=== PATIENT | female | born 1940 | race Asian ===

== ENCOUNTER → 2024-02-23 | Outpatient (CLI) | payer OTHER, SELFPAY ==
[2024-02-23 16:35] LABS: Basophils # (Auto) 0.1 Thou/mm3 (0.0-0.2); Basophils % (Auto) 1 % (0-2.5); Eosinophils % (Auto) 1 % (0-10); Hematocrit 38.1 % (36.0-46.0); Hemoglobin 12.6 g/dL (12.0-16.0); Immature Granulocytes % (Auto) 1 % (0-0); Immature Granulocytes Auto 0.04 Thou/mm3 (0.00-0.00); Lymphocytes # (Auto) 1.5 Thou/mm3 (1.0-4.8); Lymphocytes % (Auto) 21 % (10-50); Mean Corpuscular HGB Conc 33.1 g/dl (31.0-37.0); Mean Corpuscular Hemoglobin 30.3 pg (25.0-35.0); Mean Corpuscular Volume 92 fL (80-100); Monocytes # (Auto) 0.6 Thou/mm3 (0.0-0.8); Monocytes % (Auto) 8 % (0-12); Neutrophils % (Auto) 69 % (37-80); Nucleated Red Blood Cell % 0 /100 WBC (0); Platelet Count 270 Thou/mm3 (140-440); RDW Standard Deviation 47.3 fL (36.4-46.3); Red Blood Count 4.16 Miln/mm3 (4.00-5.20); White Blood Count 7.3 Thou/mm3 (3.6-11.0)
[2024-02-23 16:53] LABS: Alanine Aminotransferase 31 U/L (10-49); Albumin/Globulin Ratio 1.5 (1.2-2.2); Alkaline Phosphatase 94 U/L (46-116); Anion Gap 7 (7-16); Aspartate Amino Transferase 35 U/L (0-34); BUN/Creatinine Ratio 21 Ratio (12-20); Bilirubin,Total 0.5 mg/dL (0.3-1.2); Blood Urea Nitrogen 17 mg/dL (9-23); Calcium 9.2 mg/dL (8.3-10.6); Calcium (Corrected) 9.2 mg/dL (8.5-10.1); Carbon Dioxide 27.6 mMol/L (20.0-31.0); Chloride 101 mMol/L (98-107); Creatinine (Component) 0.8 mg/dL (0.6-1.3); Globulin 2.6 gm/dL (2.3-3.5); Glucose 87 mg/dL (74-106); Osmolality,Calculated 272 (275-295); Potassium 4.4 mMol/L (3.4-5.1); Sodium 136 mMol/L (136-145); Thyroid Stimulating Hormone 2.25 uIU/mL (0.55-4.78); Total Protein 6.6 gm/dL (5.7-8.2); eGFR > 60 See Note
== END | disposition home or self-care (01) ==
LOC: COPL 14:59
PROVIDERS: PCP Family Medicine; Referring Provider Family Medicine; Visit Provider Family Medicine
DX: R42 Dizziness and giddiness (principal)
CPT/HCPCS: 36415; 80053; 84443; 85025

== ENCOUNTER 2024-10-05 10:38 | Emergency (ER) | payer OTHER, SELFPAY ==
[2024-10-05 10:49] VITALS: BP 136/77; PULSE 68; RESP 16; TEMP 36.7; O2SAT 98; BMI 24.0
--- NOTE | 2024-10-05 11:12 | XR_ITS ---
Examination: AP chest single view Technique one AP portable upright chest single view Date and time: October 05, 2024, 11:42 AM Indications: Shivering today Findings: Normal heart size. No pneumonia or pulmonary edema. Prominent osteopenia Impression: No pneumonia or pulmonary edema
--- NOTE | 2024-10-05 11:13 | PD.EDRME ---
Rapid Medical Screening Exam RME Arrival date/time: 10/05/24 10:38 This is an 84-year-old female that is brought in by daughter with complaints of chills that started yesterday. Daughter states she has not noticed a fever but does notice that her mom had chills today and yesterday. Per daughter patient is eating and drinking with no issues. Patient does have a history of dementia and gets owners. Patient's daughter. Otherwise patient's neurological status has not changed per daughter. I have greeted and performed a focused initial assessment of this patient. Initial appropriate labs ordered at this time. A comprehensive ED assessment and evaluation of the patient and analysis of all test and completion of medical decision making process will be conducted by additional ED provider. Chief Complaint: General Adult/Misc Complain Time Seen by Provider: 10/05/24 10:53 Vital signs: Vital Signs Temperature 98.1 F 10/05/24 10:49 Pulse Rate 68 10/05/24 10:49 Respiratory Rate 16 10/05/24 10:49 Blood Pressure 136/77 H 10/05/24 10:49 Pulse Oximetry (%) 98 10/05/24 10:49 Oxygen Delivery Method Room Air 10/05/24 10:49
[2024-10-05 12:24] LABS: Collection Type, Urine Voided
[2024-10-05 12:27] LABS: Basophils # (Auto) 0.1 Thou/mm3 (0.0-0.2); Basophils % (Auto) 1 % (0-2.5); Eosinophils # (Auto) 0.1 Thou/mm3 (0.0-0.5); Eosinophils % (Auto) 1 % (0-10); Hematocrit 37.8 % (36.0-46.0); Hemoglobin 12.8 g/dL (12.0-16.0); Immature Granulocytes Auto 0.04 Thou/mm3 (0.00-0.00); Lymphocytes # (Auto) 1.2 Thou/mm3 (1.0-4.8); Lymphocytes % (Auto) 21 % (10-50); Mean Corpuscular HGB Conc 33.9 g/dl (31.0-37.0); Mean Corpuscular Hemoglobin 30.5 pg (25.0-35.0); Mean Corpuscular Volume 90 fL (80-100); Monocytes # (Auto) 0.6 Thou/mm3 (0.0-0.8); Monocytes % (Auto) 10 % (0-12); Neutrophils # (Auto) 3.8 Thou/mm3 (1.8-7.7); Neutrophils % (Auto) 66 % (37-80); Nucleated Red Blood Cell # 0.00 Thou/mm3 (0.00-0.00); Nucleated Red Blood Cell % 0 /100 WBC (0); Platelet Count 245 Thou/mm3 (140-440); RDW Standard Deviation 44.1 fL (36.4-46.3); Red Blood Count 4.19 Miln/mm3 (4.00-5.20); White Blood Count 5.7 Thou/mm3 (3.6-11.0)
[2024-10-05 12:48] LABS: Bilirubin,Urine Negative (Negative); Blood,Urine Negative (Negative); Clarity,Urine Clear (Clear/Hazy); Color,Urine Colorless (Lt Yel-Yel); Culture Indicated,Urine Not Indicated; Glucose, Urine Negative (Negative); Ketones,Urine Negative (Negative); Leukocyte Esterase,Urine Negative (Negative); Nitrite,Urine Negative (Negative); PH,Urine 6.5 (5.0-7.0); Protein,Urine Negative (Neg - Trace); RBC,Urine 1 /hpf (0-3); Specific Gravity,Urine 1.007 (1.001-1.035); Squamous Epithelial Cell,Urine < 1 /hpf (0-5); Urobilinogen,Urine Negative mg/dL (0.0-1.0); WBC,Urine 1 /hpf (0-5)
[2024-10-05 12:52] LABS: Alanine Aminotransferase 12 U/L (10-49); Albumin, Serum 4.1 gm/dL (3.4-4.8); Albumin/Globulin Ratio 1.4 (1.2-2.2); Alkaline Phosphatase 75 U/L (46-116); Anion Gap 7 (7-16); Aspartate Amino Transferase 22 U/L (0-34); BUN/Creatinine Ratio 14 Ratio (12-20); Bilirubin,Total 0.8 mg/dL (0.3-1.2); Blood Urea Nitrogen 11 mg/dL (9-23); Calcium 8.9 mg/dL (8.3-10.6); Calcium (Corrected) 8.9 mg/dL (8.5-10.1); Carbon Dioxide 30.2 mMol/L (20.0-31.0); Chloride 99 mMol/L (98-107); Creatinine (Component) 0.8 mg/dL (0.6-1.3); Estimated Creatinine Clearance 49.9 mL/min (>60); Globulin 2.9 gm/dL (2.3-3.5); Glucose 81 mg/dL (74-106); Osmolality,Calculated 270 (275-295); Potassium 4.4 mMol/L (3.4-5.1); Sodium 136 mMol/L (136-145); Total Protein 7.0 gm/dL (5.7-8.2); eGFR > 60 See Note
[2024-10-05 14:14] VITALS: BP 124/67; PULSE 63; RESP 18; TEMP 36.8; O2SAT 98
--- NOTE | 2024-10-05 14:33 | EDNOTE_ITS ---
Neuro Symptoms Deficit-RME/HPI General Chief Complaint: General Adult/Misc Complain Stated Complaint: Shaking has dementia Time Seen by Provider: 10/05/24 10:53 Arrival date/time: 10/05/24 10:38 Limitations: no limitations RME / HPI RME / HPI Narrative: 84-year-old female with a history of dementia no other chronic medical diseases brought in today by her daughter. Her daughter cares for her and they live in t he same household. Daughter states last night, patient had resting tremors that lasted several minutes and had this again this morning. Her vital signs were stable at that time. There was no fever. Patient has had no runny nose, cough, congestion. No abdominal pain, nausea, vomiting. No diarrhea. She has no rashes. She has had no falls. She does not take any blood thinners. She has no history of any ongoing medical illness other than her dementia. She has no history of parkinsonian disease. Related Data Allergies Allergy/AdvReac Type Severity Reaction Status Date / Time No Known Drug Allergies Allergy Verified 10/05/24 10:43 Review of Systems Review of Systems Systems Reviewed: All systems reviewed, normal except as documented ED Exam General Limitations: Present no limitations General appearance: Present alert and in no apparent distress Head Head exam: Present atraumatic Eye Eye exam: Present normal appearance, PERRL and EOMI ENT ENT exam: Present normal exam, normal oropharynx and mucous membranes moist Neck Neck exam: Present normal inspection, full ROM and trachea midline Chest Chest inspection: Present normal inspection and symmetric chest wall rise Respiratory Respiratory exam: Present normal lung sounds bilaterally Cardiovascular Cardiovascular exam: Present regular rate, normal rhythm and normal heart sounds Abdominal Exam Abdominal exam: Present soft and normal bowel sounds Extremities Exam Extremities exam: Present normal inspection and full ROM Back Exam Back exam: Present normal inspection and full ROM Neurological Exam Neurological exam: Present alert and other (Patient is answering questions appropriately she follows commands without difficulty. She has no unilateral weakness or deficit.) Psychiatric Psychiatric exam: Present normal affect and normal mood Skin Skin exam: Present warm, dry, intact and normal color Course Quality Measures none Orders Category Date Time Status XR chest 2V Stat Exams 10/05/24 11:12 Completed CBC Stat Lab 10/05/24 12:09 Completed Comprehensive Metabolic Panel Stat Lab 10/05/24 12:09 Completed Urinalysis, C/S if Indicated Stat Lab 10/05/24 11:51 Completed Vital Signs Vital signs: Vital Signs Temperature 98.1 F 10/05/24 10:49 Pulse Rate 68 10/05/24 10:49 Respiratory Rate 16 10/05/24 10:49 Blood Pressure 136/77 H 10/05/24 10:49 Pulse Oximetry (%) 98 10/05/24 10:49 Oxygen Delivery Method Room Air 10/05/24 10:49 Neuro Symptoms / Deficit MDM Narrative MDM Narrative:: 84-year-old female with a history of dementia no other chronic medical diseases brought in today by her daughter. Her daughter cares for her and they live in the same household. Daughter states last night, patient had resting tremors that lasted several minutes and had this again this morning. Her vital signs were stable at that time. There was no fever. Patient has had no runny nose, cough, congestion. No abdominal pain, nausea, vomiting. No diarrhea. She has no rashes. She has had no falls. She does not take any blood thinners. She has no history of any ongoing medical illness other than her dementia. She has no history of parkinsonian disease. Daughter states she thinks the patient may have been having panic attacks. Vital signs are stable. Patient is in no visible signs of stress. His CBC, CMP, urinalysis are all unremarkable. I do believe the patient be discharged for further outpatient evaluation. Return precautions were discussed. They agree to return as needed for any worsening or emergent changes. Patient data External records reviewed:: None Clinical information provided by:: patient and family Social determinants that could affect healthcare access:: mental health Patient has the following chronic illnesses:: Dementia How is presenting disease/condition affected by chronic disease/condition?: exacerbated by Evaluation data The following diagnostics were reviewed and interpreted by me:: lab results Lab and/or radiology exams considered but not ordered:: MRI of the brain Interpretation Summary: Work appears unremarkable Medications / Prescriptions Medications or Prescriptions considered but not ordered:: n/a Medication administrations:: n/a Consultations Consultation(s) initiated? (list below): No Diagnosis Neuro Differential Diagnosis: subarachnoid hemorrhage and other (Resting tremors, parkinsonian disease) Most likely diagnosis given after review of the tests above:: Tremors Admission Indicated Admission indicated?: not indicated Admission Request Was there a request for admission?: No Disposition Plan Disposition Plan: Discharge Discharge Attestation Discharge Attestation: The patient and all family members were given an opportunity to ask questions and understood the discharge instructions. Discharge instructions specifically effects, indications for sooner follow up or return to the emergency department, and the expected course of current diagnosis. Patient condition: Stable Discharge Plan Plan Patient Disposition: HOME (Self Care) Patient condition on transfer: Stable Prescriptions/Referrals Referrals: Daniela Mitchell MD [Primary Care Provider] - In 1 week Problem List Clinical Impression: Chills, Tremor Patient/Caregiver Discharge Instructions Education Materials: Essential Tremor (ET), Functional Movement Disorders Additional Instructions: - Follow-up with your primary doctor next week to consider further evaluation. - Return to the emergency room anytime for any worsening changes as needed. Print Language: Belarusian Stand Alone Forms: [employer] Info., Patient Portal Info Letter
== END 2024-10-05 14:53 | disposition home or self-care (01) ==
PROVIDERS: Nurse Practitioner Family; Emergency Provider Family Medicine; PCP Family Medicine
DX: R68.83 Chills (without fever) (principal); R25.1 Tremor, unspecified; F03.90 Unspecified dementia, unspecified severity, without behavioral disturbance, psychotic disturbance, mood disturbance, and anxiety
CPT/HCPCS: 36415; 71046; 80053; 81001; 85025; 99283

== ENCOUNTER 2024-10-06 17:37 | Emergency (ER) | payer OTHER, SELFPAY ==
[2024-10-06 18:06] VITALS: BP 164/77; PULSE 65; RESP 20; TEMP 36.9; O2SAT 99
--- NOTE | 2024-10-06 18:14 | EDNOTE_ITS ---
ED SOB =RME/HPI General Chief Complaint: Shortness of Breath/Dyspnea Stated Complaint: SOB and can't burp Time Seen by Provider: 10/06/24 18:14 Source: patient and family Arrival date/time: 10/06/24 17:37 Limitations: no limitations RME / HPI RME / HPI Narrative: Patient was brought in by his daughter stating that earlier today her mother was feeling short of breath and had tremors. At this time seen, patient is needing having tremors nor is short of breath. Related Data Allergies Allergy/AdvReac Type Severity Reaction Status Date / Time No Known Drug Allergies Allergy Verified 10/06/24 17:41 ED Exam General Limitations: Present no limitations General appearance: Present alert and in no apparent distress Head Head exam: Present atraumatic and normocephalic Eye Eye exam: Present normal appearance ENT ENT exam: Present normal exam Neck Neck exam: Present normal inspection Chest Chest inspection: Present normal inspection and symmetric chest wall rise Respiratory Respiratory exam: Present normal lung sounds bilaterally and respiratory distress; Absent wheezes, stridor, accessory muscle use or prolonged expiratory phase Cardiovascular Cardiovascular exam: Present regular rate and normal rhythm Abdominal Exam Abdominal exam: Present soft; Absent distention or tenderness Extremities Exam Extremities exam: Present normal inspection and other (No tremors) Back Exam Back exam: Present normal inspection Course Course Course Narrative: Patient's daughter is asking for Mini-Mental exam and checking dopamine level of the brain, which are not available Quality Measures none Vital Signs Vital signs: Vital Signs Temperature 98.4 F 10/06/24 18:06 Pulse Rate 65 10/06/24 18:06 Respiratory Rate 20 10/06/24 18:06 Blood Pressure 164/77 H 10/06/24 18:06 Pulse Oximetry (%) 99 10/06/24 18:06 Oxygen Delivery Method Room Air 10/06/24 18:06 Shortness of Breath / Dyspnea Patient data External records reviewed:: [facility] previous records Clinical information provided by:: patient Social determinants that could affect healthcare access:: none Patient has the following chronic illnesses:: Dementia How is presenting disease/condition affected by chronic disease/condition?: caused by Evaluation data The following diagnostics were reviewed and interpreted by me:: other (specify) (Not indicated) Lab and/or radiology exams considered but not ordered:: Not applicable Interpretation Summary: Not applicable Medications / Prescriptions Medications or Prescriptions considered but not ordered:: Not applicable Medication administrations:: Not applicable Consultations Consultation(s) initiated? (list below): No Diagnosis Shortness of Breath Differential Diagnosis: other (None) Most likely diagnosis given after review of the tests above:: Medical screening exam Admission Indicated Admission indicated?: not indicated Admission Request Was there a request for admission?: No Disposition Plan Disposition Plan: Discharge Discharge Attestation Discharge Attestation: The patient and all family members were given an opportunity to ask questions and understood the discharge instructions. Discharge instructions specifically effects, indications for sooner follow up or return to the emergency department, and the expected course of current diagnosis. Patient condition: Stable Discharge Plan Plan Patient Disposition: HOME (Self Care) Patient condition on transfer: Stable Problem List Clinical Impression: Encounter for medical screening examination Patient/Caregiver Discharge Instructions Discharge Activity: activity as tolerated Print Language: Ecuadorean Stand Alone Forms: [employer] Award Info., Patient Portal Info Letter
--- NOTE | 2024-10-06 19:46 | PC.NURSE ---
Pt was not found in room. [employer]PER[employer] SINGER stated Pt wanted to leave and did not want to wait for DC paperwork.
== END 2024-10-06 19:47 | disposition left against medical advice (07) ==
LOC: SERX 18:39
PROVIDERS: Emergency Provider Emergency Medicine; PCP Family Medicine
DX: R06.02 Shortness of breath (principal); R25.1 Tremor, unspecified; Z53.29 Procedure and treatment not carried out because of patient's decision for other reasons
CPT/HCPCS: 99281

== ENCOUNTER → 2025-02-13 | Outpatient (CLI) | payer OTHER, MEDICAID, SELFPAY ==
[2025-02-13 15:13] LABS: Collection Type, Urine Clean Catch
[2025-02-13 15:25] LABS: Basophils # (Auto) 0.0 Thou/mm3 (0.0-0.2); Basophils % (Auto) 1 % (0-2.5); Eosinophils # (Auto) 0.0 Thou/mm3 (0.0-0.5); Eosinophils % (Auto) 1 % (0-10); Hematocrit 39.2 % (36.0-46.0); Hemoglobin 13.3 g/dL (12.0-16.0); Immature Granulocytes Auto 0.02 Thou/mm3 (0.00-0.00); Lymphocytes # (Auto) 1.0 Thou/mm3 (1.0-4.8); Lymphocytes % (Auto) 22 % (10-50); Mean Corpuscular HGB Conc 33.9 g/dl (31.0-37.0); Mean Corpuscular Hemoglobin 30.4 pg (25.0-35.0); Mean Corpuscular Volume 90 fL (80-100); Monocytes # (Auto) 0.5 Thou/mm3 (0.0-0.8); Monocytes % (Auto) 11 % (0-12); Neutrophils # (Auto) 3.0 Thou/mm3 (1.8-7.7); Neutrophils % (Auto) 65 % (37-80); Nucleated Red Blood Cell # 0.00 Thou/mm3 (0.00-0.00); Nucleated Red Blood Cell % 0 /100 WBC (0); Platelet Count 223 Thou/mm3 (140-440); RDW Standard Deviation 43.9 fL (36.4-46.3); Red Blood Count 4.38 Miln/mm3 (4.00-5.20); White Blood Count 4.6 Thou/mm3 (3.6-11.0)
[2025-02-13 15:36] LABS: Glucose Estimated Average 108 mg/dL (80-131); Hemoglobin A1C 5.4 % Hgb (4.8-6.0)
[2025-02-13 15:37] LABS: Bacteria,Urine Rare; Bilirubin,Urine Negative (Negative); Blood,Urine Negative (Negative); Clarity,Urine Clear (Clear/Hazy); Color,Urine Yellow (Lt Yel-Yel); Glucose, Urine Negative (Negative); Ketones,Urine Negative (Negative); Leukocyte Esterase,Urine Positive (Negative); Nitrite,Urine Negative (Negative); PH,Urine 7.0 (5.0-7.0); Protein,Urine Negative (Neg - Trace); RBC,Urine 7 /hpf (0-3); Specific Gravity,Urine 1.019 (1.001-1.035); Squamous Epithelial Cell,Urine < 1 /hpf (0-5); Urobilinogen,Urine Negative mg/dL (0.0-1.0); WBC,Urine 30 /hpf (0-5)
[2025-02-13 15:47] LABS: Alanine Aminotransferase < 7 U/L (10-49); Albumin, Serum 4.3 gm/dL (3.4-4.8); Albumin/Globulin Ratio 1.7 (1.2-2.2); Alkaline Phosphatase 77 U/L (46-116); Anion Gap 9 (7-16); Aspartate Amino Transferase 21 U/L (0-34); BUN/Creatinine Ratio 14 Ratio (12-20); Bilirubin,Total 0.7 mg/dL (0.3-1.2); Blood Urea Nitrogen 11 mg/dL (9-23); Calcium 9.3 mg/dL (8.3-10.6); Calcium (Corrected) 9.3 mg/dL (8.5-10.1); Carbon Dioxide 28.4 mMol/L (20.0-31.0); Chloride 104 mMol/L (98-107); Creatinine (Component) 0.8 mg/dL (0.6-1.3); Globulin 2.6 gm/dL (2.3-3.5); Glucose 93 mg/dL (74-106); Osmolality,Calculated 280 (275-295); Potassium 4.0 mMol/L (3.4-5.1); Sodium 141 mMol/L (136-145); Thyroid Stimulating Hormone 1.56 uIU/mL (0.55-4.78); Total Protein 6.9 gm/dL (5.7-8.2); eGFR > 60 See Note
== END | disposition home or self-care (01) ==
LOC: COPL 14:27
PROVIDERS: PCP Family Medicine; Referring Provider Family Medicine; Visit Provider Family Medicine
DX: Z00.00 Encounter for general adult medical examination without abnormal findings (principal)
CPT/HCPCS: 36415; 80053; 81001; 83036; 84443; 85025